=== PATIENT | female | born 1965 | race Caucasian/White ===

== ENCOUNTER 2024-01-18 08:41 | Emergency (ER) | payer OTHER, SELFPAY ==
[2024-01-18 08:48] VITALS: BP 144/77; PULSE 73; RESP 20; TEMP 36.6; O2SAT 100
--- NOTE | 2024-01-18 09:03 | ED.DENTAL ---
HPI - Dental/Oral General Chief complaint: Dental/Oral Stated complaint: tooth/gum pain Time Seen by Provider: 01/18/24 09:03 58-year-old female to [facility] for complaint of right lower molar and surrounding gum swelling and pain for 2 days. Patient is attempted to treat at home with 400 mg ibuprofen alternated with a 1000 mg of Tylenol, warm salt water rinses, peroxide rinses and flossing with little relief. Patient does not currently have a dentist. Patient denies fever, sore throat, difficulty swallowing, facial swelling, headache, nausea. patient able to tolerate fluids by mouth. Patient hypertensive in triage. Patient resting in exam room uncomfortably. Respirations even and nonlabored. Patient able to speak in full sentences without difficulty. Patient in no acute distress. Source: patient, RN notes reviewed and old records reviewed Mode of arrival: ambulatory Limitations: no limitations Related Data Home Medications Medication Instructions Recorded Confirmed losartan 100 tablet 01/18/24 mg-hydrochlorothiazide 12.5 mg tablet venlafaxine 75 mg tablet mg 01/18/24 Allergies Allergy/AdvReac Type Severity Reaction Status Date / Time No Known Allergies Allergy Unverified 02/13/14 10:57 Review of Systems Review of Systems: All systems reviewed & are unremarkable except as noted in HPI and below Constitutional: Constitutional: Reports no additional constitutional complaints Eyes: Eyes: Reports no additional eye complaints ENT: Reports as per HPI, Reports dental pain ( Right lower molar) and Reports mouth pain ( right lower molar) Cardiovascular: Cardiovascular: Reports no additional cardiovascular complaints, Denies chest pain and Denies dyspnea Respiratory: Respiratory: Reports no additional respiratory complaints, Denies cough and Denies dyspnea Musculoskeletal: Musculoskeletal: Reports no additional musculoskeletal complaints Neurologic: Reports system reviewed and no additional complaints, except as documented Psychiatric: Psychiatric: Reports no additional psychiatric complaints [facility] Comments At the time of my signature, I reviewed and agree with the nursing past medical, surgical, social, and family history. There is no relevant family history pertinent to the patient complaint. Exam Const: General: cooperative, healthy appearing, comfortable, no acute distress, alert and well nourished Nutritional Appearance: well nourished Orientation/consciousness: patient oriented x3 Limitations: no limitations HENMT: Head: normal to inspection Ears: external ears normal Face/Nose/Sinus: Normal external nose present, Normal nares present, normal facial exam, No erythema and No edema Face and sinus: normal facial exam, no erythema and no edema Mouth: Yes Normal oral and palatal mucosa present Teeth and gingiva: abnormal tooth and associated gingiva and gingiva abnormal edematous ( with erythema right lower molar area) and tender Eyes: General: appearance normal, both eyes and all related structures Neck: Neck: normal visual inspection, full ROM and no meningeal signs Lymphatic: no lymphadenopathy noted and no lymphedema noted Chest: Chest palpation & inspection: normal inspection of the chest Resp: Effort & Inspection: normal respiratory effort and able to speak in complete sentences Auscultation: clear to auscultation bilaterally Cardio: Jugular venous distension: no JVD Rate: regular rate Rhythm: regular rhythm Back/Spine/Pelvis: Cervical Spine: cervical ROM normal Skin: General skin exam: normal color, no rashes or lesions noted and turgor normal Neuro: General: patient oriented x3, gait normal, moves all extremities and no meningeal signs Speech: normal speech Gait exam (Neuro): Normal gait present Extrem: General: normal to inspection, full ROM and capillary refill normal Psych: Appearance: grossly normal and well kempt Course Course Emergency Course: Some parts of this
== END 2024-01-18 09:23 | disposition home or self-care (01) ==
PROVIDERS: Emergency Provider Nurse Practitioner Family
DX: K05.20 Aggressive periodontitis, unspecified (principal); I10 Essential (primary) hypertension
CPT/HCPCS: 99203; G0463

== ENCOUNTER 2025-04-19 08:11 | Emergency (ER) | payer OTHER, SELFPAY ==
[2025-04-19 08:26] VITALS: BP 148/77; PULSE 89; RESP 20; TEMP 37.1; O2SAT 98
--- NOTE | 2025-04-19 09:07 | ED.LOWEXIN ---
HPI - Extremity Injury (Lower) General Chief Complaint: Extremity Injury, Lower Stated Complaint: Left Upper Leg Pain Time Seen by Provider: 04/19/25 08:55 Source: patient and RN notes reviewed Mode of arrival: ambulatory Limitations: no limitations History of Present Illness HPI Narrative: 59-year-old female Presents [facility] complaining of injury to right that I. Patient reports using hip abductor/abductor machine approximately 5 days ago, she had some mild pain after using the machine however 2 days later after going up and down a ladder at home for [place] decorations she developed worsening pain to her right thigh. Patient reports the pain is in the inguinal region of her thigh radiates down to mid thigh. Patient says is worse with walking or Floxin her hip. Patient says she is having a hard time sleeping due to the pain. Patient also reports having an ?Charley horses? Patient's has been taking ibuprofen with some relief. Patient denies any numbness, tingling or any other injuries. Patient denies any falls. Related Data Home Medications ?Medication ?Instructions ?Recorded ?Confirmed ?Last Taken ?Type losartan 100 tablet 01/18/24 Unknown History mg-hydrochlorothiazide 12.5 mg tablet venlafaxine 75 mg tablet mg 01/18/24 Unknown History atorvastatin 40 mg tablet mg 04/19/25 Unknown History fenofibrate 160 mg tablet mg 04/19/25 Unknown History Allergies Allergy/AdvReac Type Severity Reaction Status Date / Time No Known Allergies Allergy Verified 04/19/25 08:43 Review of Systems Review of Systems: CONSTITUTIONAL: Denies fever, chills, or sweats. EYES: Denies visual changes, redness, or discharge. ENT: Denies rhinorrhea, congestion, sore throat, or otalgia. CARDIOVASCULAR: Denies chest pain, palpitations, or edema. RESPIRATORY: Denies cough or dyspnea. GASTROINTESTINAL: Denies abdominal pain, nausea, vomiting, or diarrhea. GENITOURINARY: Denies dysuria or hematuria. SKIN: Denies rash, wound, or itching. MUSCULOSKELETAL: Denies back pain, joint pain, or myalgia. Positive for right thigh pain. NEUROLOGIC: Denies headache, numbness, or weakness. PSYCHIATRIC: Denies anxiety or depression. All other systems reviewed are negative, except as documented in HPI. [facility] Comments At the time of my signature, I reviewed and agree with the nursing past medical, surgical, social, and family history. There is no relevant family history pertinent to the patient complaint. Exam Narrative: GENERAL: This is a well-nourished, well-developed adult, in no apparent distress. They are non ill-appearing, nontoxic appearing. HEAD: normocephalic, atraumatic. EYES: Sclera clear/white. Vision is grossly intact. Conjunctiva normal. Extraocular movement intact. EARS: External ears normal Hearing grossly intact. NOSE: External nose normal THROAT: Mucous membranes moist NECK: Neck supple CARDIOVASCULAR: Regular rate and rhythm RESPIRATORY: Respiratory rate normal, respiratory effort nonlabored, no respiratory distress NEURO: awake, alert, and oriented to person, place and time. There were no obvious focal neurologic abnormalities. EXTREMITIES: Right thigh: No obvious deformity, injury, swelling, bruising, redness. There is pain through full range of motion. Upper thigh/inguinal region tender to the palpation. No inguinal hernia palpated. Capillary refill less than 3 seconds. Normal sensation. Neurovascular status intact distal injury. No shortening or rotation. BACK: Nontender without deformity. Course Course Level of Care: Express Care Visit Vital Signs Vital signs: Vital Signs Temperature 98.8 F 04/19/25 08:26 Pulse Rate 89 04/19/25 08:26 Respiratory Rate 20 04/19/25 08:26 Blood Pressure 148/77 H 04/19/25 08:26 Pulse Oximetry 98 04/19/25 08:26 Oxygen Delivery Room Air 04/19/25 08:26 Temperature 98.8 F 04/19/25 08:26 Pulse Rate 89 04/19/25 08:26 Respiratory Rate 20 04/19/25 08:26 Blood Pressure 148/77 H 04/19/25 08:26 Pulse Oximetry 98 04/19/25 08:26 Oxygen Delivery Room Air 04/19/25 08:26 [facility] MDM Narrative Medical decision making narrative: Patient likely has a muscle strain. Discussed rice therapy and supportive care. Will give her muscle relaxers for the muscle spasms. Discussed physical exam findings. Advised supportive measures and signs/symptoms to go to the ER. Pt is appropriate for outpt treatment and f/u. Differential Diagnosis Differential Diagnosis: Muscle strain, hip strain, hip sprain, ligament injury Critical Care Time Critical Care Time Critical Care Time: No Discharge Plan Discharge Clinical Impression: Muscle strain of right thigh Qualifiers: Encounter type: initial encounter Qualified Code(s): S76.911A - Strain of unspecified muscles, fascia and tendons at thigh level, right thigh, initial encounter Patient Disposition: Home Condition: Stable Instructions: Muscle Strain (ED) Additional Instructions: Take the ibuprofen as directed. You may alternate with Tylenol. Follow instructions on the bottle. Take muscle relaxers as directed, do not drive or operate machinery while taking muscle relaxers as it may make you drowsy. Rest and elevate the leg; bear weight as tolerated Apply ice or heat 15-20 minute intervals several times a day Follow up with your primary care provider orthopedist in 1 week. Patient Language: Greek Prescriptions: New methocarbamol 750 mg tablet 750 mg PO TID Qty: 12 0RF ibuprofen 800 mg tablet 800 mg PO Q6H PRN (Reason: pain) Qty: 30 0RF No Action venlafaxine 75 mg tablet losartan-hydrochlorothiazide 100-12.5 mg tablet atorvastatin 40 mg tablet fenofibrate 160 mg tablet Follow-up/Referrals: Rei Duggan MD [Physician, Orthopedics] Felisha,MD Cassidy [Primary Care Provider, Unknown] Stand Alone Forms: Work/School Release IP Time of Disposition: 09:02
== END 2025-04-19 09:05 | disposition home or self-care (01) ==
PROVIDERS: PCP Internal Medicine
DX: S76.911A Strain of unspecified muscles, fascia and tendons at thigh level, right thigh, initial encounter (principal); X50.3XXA Overexertion from repetitive movements, initial encounter; I10 Essential (primary) hypertension; E78.00 Pure hypercholesterolemia, unspecified; F41.9 Anxiety disorder, unspecified
CPT/HCPCS: 99213; G0463

== ENCOUNTER 2025-04-22 08:07 | Emergency (ER) | payer OTHER, SELFPAY ==
[2025-04-22 08:11] VITALS: BP 135/72; PULSE 96; RESP 16; TEMP 36.8; O2SAT 100
--- NOTE | 2025-04-22 09:10 | ED.LOWEXIN ---
HPI - Extremity Injury (Lower) General Chief Complaint: Extremity Injury, Lower Stated Complaint: Upper Right Leg Pain Time Seen by Provider: 04/22/25 08:09 Source: patient and RN notes reviewed Mode of arrival: ambulatory Limitations: no limitations History of Present Illness HPI Narrative: 59-year-old female patient presents to the [facility] complaining of right thigh pain. Patient is here 4 days ago diagnosed with a muscle strain, sent home with muscle relaxers. Patient says symptoms somewhat improved however having worsening pain at night, she reports shooting pain throughout her right thigh. Patient is not follow-up with her doctor or an orthopedist it. Patient denies any other symptoms. Patient has been using methocarbamol and ibuprofen with some relief. Related Data Home Medications ?Medication ?Instructions ?Recorded ?Confirmed ?Last Taken ?Type losartan 100 tablet 01/18/24 Unknown History mg-hydrochlorothiazide 12.5 mg tablet venlafaxine 75 mg tablet mg 01/18/24 Unknown History atorvastatin 40 mg tablet mg 04/19/25 Unknown History fenofibrate 160 mg tablet mg 04/19/25 Unknown History Allergies Allergy/AdvReac Type Severity Reaction Status Date / Time No Known Allergies Allergy Verified 04/22/25 08:14 Review of Systems Review of Systems: CONSTITUTIONAL: Denies fever, chills, or sweats. EYES: Denies visual changes, redness, or discharge. ENT: Denies rhinorrhea, congestion, sore throat, or otalgia. CARDIOVASCULAR: Denies chest pain, palpitations, or edema. RESPIRATORY: Denies cough or dyspnea. GASTROINTESTINAL: Denies abdominal pain, nausea, vomiting, or diarrhea. GENITOURINARY: Denies dysuria or hematuria. SKIN: Denies rash or itching. MUSCULOSKELETAL: Denies back pain, joint pain, or myalgia. Positive for thigh pain. NEUROLOGIC: Denies headache, numbness, or weakness. PSYCHIATRIC: Denies anxiety or depression. All other systems reviewed are negative, except as documented in HPI. [facility] Comments At the time of my signature, I reviewed and agree with the nursing past medical, surgical, social, and family history. There is no relevant family history pertinent to the patient complaint. Exam Narrative: GENERAL: This is a well-nourished, well-developed adult, in no apparent distress. They are non ill-appearing, nontoxic appearing. HEAD: normocephalic, atraumatic. EYES: Sclera clear/white. Conjunctiva normal. Vision is grossly intact. Extraocular movements intact EARS: External ears normal, Hearing grossly intact. NOSE: External nose normal THROAT: Mucous membranes moist, NECK: Neck supple, CARDIOVASCULAR: Regular rate and rhythm s. RESPIRATORY: Respiratory rate normal, respiratory effort nonlabored, no respiratory distress SKIN: warm, Dry, intact with no suspicious lesions or rash, good texture and turgor. NEURO: awake, alert, and oriented to person, place and time. There were no obvious focal neurologic abnormalities. EXTREMITIES: Right thigh: Obvious deformity, bruising or redness, swelling or injury. Normal range of motion. Sensation intact. Mild tenderness to palpation to the anterior thigh. Capillary refill is 2 seconds. Neurovascular status intact distally. BACK: Nontender without deformity. No CVA tenderness. Course Course Level of Care: Express Care Visit Vital Signs Vital signs: Vital Signs Temperature 98.2 F 04/22/25 08:11 Pulse Rate 96 04/22/25 08:11 Respiratory Rate 16 04/22/25 08:11 Blood Pressure 135/72 04/22/25 08:11 Pulse Oximetry 100 04/22/25 08:11 Oxygen Delivery Room Air 04/22/25 08:11 Temperature 98.2 F 04/22/25 08:11 Pulse Rate 96 04/22/25 08:11 Respiratory Rate 16 04/22/25 08:11 Blood Pressure 135/72 04/22/25 08:11 Pulse Oximetry 100 04/22/25 08:11 Oxygen Delivery Room Air 04/22/25 08:11 [facility] Narrative Medical decision making narrative: Will give patient a course of prednisone for pain. Advised patient to follow-up with ortho for her symptoms. Discussed physical exam findings. Advised supportive measures and signs/symptoms to go to the ER. Pt is appropriate for outpt treatment and f/u. Differential Diagnosis Differential Diagnosis: Muscle strain, groin injury, ligament injury Critical Care Time Critical Care Time Critical Care Time: No Discharge Plan Discharge Clinical Impression: Pain of right thigh Patient Disposition: Home Condition: Stable Instructions: Groin Strain (ED) Additional Instructions: Take prednisone as directed. Rest and elevate the leg; bear weight as tolerated Apply ice or heat 15-20 minute intervals several times a day You may take ibuprofen 600 mg to 800 mg every 6-8 hours. Do not exceed more than 800 mg of ibuprofen per dose. Do not exceed more than 3200 mg ibuprofen in a day. You may take up to 1000 mg Tylenol every 6-8 hours. Do not exceed 1000 mg per dose, do exceed more than 4000 mg of Tylenol in a day. Follow up with Ortho in 3-5 days. Patient Language: Citizen Of [place] Prescriptions: New prednisone 20 mg tablet 40 mg PO DAILY 5 Days Qty: 10 0RF No Action venlafaxine 75 mg tablet losartan-hydrochlorothiazide 100-12.5 mg tablet atorvastatin 40 mg tablet fenofibrate 160 mg tablet methocarbamol 750 mg tablet 750 mg PO TID Qty: 12 0RF ibuprofen 800 mg tablet 800 mg PO Q6H PRN (Reason: pain) Qty: 30 0RF Follow-up/Referrals: Felisha,MD Cassidy [Primary Care Provider, Unknown] Time of Disposition: 08:31
== END 2025-04-22 08:36 | disposition home or self-care (01) ==
PROVIDERS: PCP Internal Medicine
DX: M79.651 Pain in right thigh (principal)
CPT/HCPCS: 99213; G0463